=== PATIENT | male | born 1940 | race Caucasian/White ===

== ENCOUNTER 2018-02-20 11:34 | Day surgery (SDC) | payer MEDICARE, OTHER ==
[~2018-02-20] VITALS: Ht 177.8 cm; Wt 101.7 kg
[~2018-02-20 11:34] MED LIST: AMLO10 PO; BENA20 PO; CHOL10002 PO; Carvedilol12.5 MG PO; ELIQUIS5 MG PO; EZET10 PO; Ferosul325 MG PO; GLIM2 PO; Janumet 50-5001 EACH PO; KLOR-CON SPRIN10 MEQ PO; LIVALO2 MG PO; Prilosec Otc20 MG PO; TORSE20 PO; VITAMIN B122500 MC1 PO
== END 2018-02-20 13:30 | disposition home or self-care (01) ==
LOC: ORSCSDS 11:34
PROVIDERS: Internal Medicine Gastroenterology
PROC: 0DB58ZX Excision of Esophagus, Via Natural or Artificial Opening Endoscopic, Diagnostic (ICD-10-PCS; principal; 2018-02-20 13:00)
PROC: 0DB68ZX Excision of Stomach, Via Natural or Artificial Opening Endoscopic, Diagnostic (ICD-10-PCS; principal; 2018-02-20 13:00)
DX: K22.70 Barrett's esophagus without dysplasia (principal); K31.7 Polyp of stomach and duodenum; K21.9 Gastro-esophageal reflux disease without esophagitis; E11.9 Type 2 diabetes mellitus without complications; I10 Essential (primary) hypertension; I48.91 Unspecified atrial fibrillation; E78.00 Pure hypercholesterolemia, unspecified; Z87.891 Personal history of nicotine dependence; Z79.01 Long term (current) use of anticoagulants; Z79.82 Long term (current) use of aspirin; Z79.84 Long term (current) use of oral hypoglycemic drugs; Z79.899 Other long term (current) drug therapy
CPT/HCPCS: 82947; 88305; 88341; 88342; J2250

== ENCOUNTER → 2018-02-23 | Outpatient (CLI) | payer MEDICARE, OTHER ==
[2018-02-23 17:39] LABS: Appearance, Urine Clear (Clear); Bilirubin, Urine Neg (Neg); Blood, Urine 1+ (Neg); Color, Urine Yellow (P-Yellow); Glucose Qualitative, Urine Neg (Neg); Ketones, Urine Neg (Neg); Leukocyte Esterase, Urine Neg (Neg); Nitrite, Urine Neg (Neg); Protein, Urine Neg (Neg); Specific Gravity, Urine 1.015 (1.003-1.022); Urobilinogen, Urine NORM (Normal)
[2018-02-23 18:26] LABS: Bacteria Not Seen /hpf; Red Blood Cells, Urine 0-2 /hpf (0-2); Squamous Epithelial Cells Rare /hpf (Few); White Blood Cells, Urine 0-2 /hpf (0-5)
== END | disposition home or self-care (01) ==
LOC: LAB 16:00
PROVIDERS: Internal Medicine
DX: R31.29 Other microscopic hematuria (principal)
CPT/HCPCS: 81001

== ENCOUNTER 2019-09-17 11:48 | Day surgery (SDC) | payer MEDICARE, OTHER ==
[~2019-09-17] VITALS: Ht 177.8 cm; Wt 98.9 kg
[~2019-09-17 11:48] MED LIST changes: +Amlodipine Besy10 MG PO; +Benazepril HCl40 MG PO; +METF500C PO; +POTA10T PO; +Pravachol40 MG PO
== END 2019-09-17 14:26 | disposition home or self-care (01) ==
LOC: ORSCSDS 11:48
PROVIDERS: Internal Medicine Gastroenterology
PROC: 0DBL8ZX Excision of Transverse Colon, Via Natural or Artificial Opening Endoscopic, Diagnostic (ICD-10-PCS; principal; 2019-09-17 13:15)
DX: K62.5 Hemorrhage of anus and rectum (principal); D12.3 Benign neoplasm of transverse colon; K57.30 Diverticulosis of large intestine without perforation or abscess without bleeding; Z86.010 Personal history of colon polyps; I48.91 Unspecified atrial fibrillation; E11.9 Type 2 diabetes mellitus without complications; G47.33 Obstructive sleep apnea (adult) (pediatric); I10 Essential (primary) hypertension; K22.70 Barrett's esophagus without dysplasia; E78.5 Hyperlipidemia, unspecified; Z87.891 Personal history of nicotine dependence; E66.9 Obesity, unspecified; Z68.31 Body mass index [BMI] 31.0-31.9, adult; Z79.01 Long term (current) use of anticoagulants; Z79.82 Long term (current) use of aspirin; Z79.84 Long term (current) use of oral hypoglycemic drugs; Z79.899 Other long term (current) drug therapy
CPT/HCPCS: 82947; 88305; J2704; J7120

== ENCOUNTER 2021-08-02 12:51 | Inpatient (IN) | payer OTHER, MEDICARE ==
[~2021-08-02] VITALS: Ht 177.8 cm; Wt 92.9 kg
[~2021-08-02 12:51] MED LIST changes: +Amaryl1 MG PO; -Amlodipine Besy10 MG PO; -Benazepril HCl40 MG PO; -Carvedilol12.5 MG PO; -Pravachol40 MG PO; -Prilosec Otc20 MG PO; -TORSE20 PO
[2021-08-02 13:41] LABS: BASOPHILS ABSOLUTE AUTO 0.04 K/mm3 (0.00-0.23); BASOPHILS PERCENT AUTO 1 % (0-2); EOSINOPHILS PERCENT AUTO 2 % (0-6); Hematocrit 28.5 % (37.0-53.0); Hemoglobin 8.5 g/dL (13.5-17.5); IMMATURE GRAN ABSOLUTE AUTO 0.05 K/mm3 (0.00-0.10); IMMATURE GRAN PERCENT AUTO 1 % (0-1); LYMPHOCYTES ABSOLUTE AUTO 0.47 K/mm3 (0.84-5.20); LYMPHOCYTES PERCENT AUTO 7 % (21-46); MONOCYTES ABSOLUTE AUTO 0.55 K/mm3 (0.16-1.47); MONOCYTES PERCENT AUTO 8 % (4-13); Mean Corpuscular HGB 29.4 pg (26.0-34.0); Mean Corpuscular HGB Conc 29.8 g/dL (31.5-36.5); Mean Corpuscular Volume 99 fL (80-100); Mean Platelet Volume 8.9 fL (9.1-12.4); NEUTROPHILS ABSOLUTE AUTO 5.42 K/mm3 (1.96-9.15); NEUTROPHILS PERCENT AUTO 82 % (41-73); Platelet Count 281 K/mm3 (150-400); RDW Coefficient Variation 15.9 % (11.7-14.2); RDW Standard Deviation 58.1 fL (35.1-46.3); Red Blood Cell Count 2.89 M/mm3 (4.30-5.90); White Blood Cell Count 6.63 K/mm3 (4.00-11.30)
[2021-08-02 14:17] LABS: Alanine Aminotransfer (ALT/SGP 22 U/L (12-78); Albumin, Blood 2.9 g/dL (3.4-5.0); Albumin/Globulin Ratio 0.8 (0.8-1.8); Alk Phos 76 U/L (50-136); Anion Gap 2 mmol/L (6-16); Aspartate Aminotrans (AST/SGOT 21 U/L (12-37); Bilirubin, Total 0.3 mg/dL (0.1-1.0); Blood Urea Nitrogen 20 mg/dL (8-24); Bun/Creatinine Ratio 15.5 (12.0-20.0); CO2, Blood 39 mmol/L (21-32); Calcium, Blood 8.5 mg/dL (8.5-10.1); Chloride, Blood 94 mmol/L (98-108); Creatinine, Blood 1.29 mg/dL (0.60-1.20); Globulin, Blood 3.5 g/dL (2.2-4.0); Glomerular Filtration Rate 54 (60-); Glucose, Blood 145 mg/dL (70-99); Potassium, Blood 4.2 mmol/L (3.5-5.5); Sodium, Blood 135 mmol/L (136-145); Total Protein, Blood 6.4 g/dL (6.4-8.2); Troponin I <0.015 ng/mL (0.000-0.040)
[2021-08-02 14:38] LABS: Base Excess Venous 12.3 mmol/L; PCO2 Venous 84.7 mmHg (38-42); PO2 Venous 53.1 mmHg (38-42); pH Blood Venous 7.27 (7.34-7.37)
[2021-08-02 14:43] LABS: SARS-Cov-2 (COVID-19) PCR, MMC NEGATIVE (NEGATIVE)
[2021-08-02] MEDS ORDERED: Prilosec Otc20 MG PO (15:10)
[2021-08-02] MEDS ORDERED: CARAFATE1 GM/10 M1 PO (15:13)
[2021-08-02] MEDS ORDERED: CLOBETASOL EMOL15 G2 TOP (15:17)
[2021-08-02] MEDS ORDERED: Amlodipine Bes2.5 MG PO (15:18)
[2021-08-02] MEDS ORDERED: ELIQUIS5 MG PO (15:20)
[2021-08-02] MEDS ORDERED: Carvedilol12.5 MG PO (15:20)
[2021-08-02] MEDS ORDERED: PRAVASTATIN SOD40 MG PO (15:21)
[2021-08-02] MEDS ORDERED: BENA20 PO (15:22)
[2021-08-02] MEDS ORDERED: TORSE20 PO (15:22)
[2021-08-02] MEDS ORDERED: K-Dur10 MEQ PO (15:23)
[2021-08-02] MEDS ORDERED: B-121000 MC3 PO (15:25)
[2021-08-02] MEDS ORDERED: VITAMIN D325 MC3 PO (15:25)
[2021-08-02] MEDS ORDERED: Ferosul325 MG PO (15:26)
[2021-08-02] MEDS ORDERED: Ventolin/Prove6.7 GM INH (15:26)
[2021-08-02 17:00] LABS: Percent Saturation 6.7 % (20.0-50.0)
--- NOTE | 2021-08-03 05:33 | NUR ---
SHIFT SUMMARY PATIENT IS STABLE. NO ACUTE CHANGES. PT QUIET MOST OF THE NIGHT.
[2021-08-03 06:26] LABS: BASOPHILS ABSOLUTE AUTO 0.03 K/mm3 (0.00-0.23); BASOPHILS PERCENT AUTO 1 % (0-2); EOSINOPHILS ABSOLUTE AUTO 0.27 K/mm3 (0.00-0.68); EOSINOPHILS PERCENT AUTO 5 % (0-6); Hemoglobin 8.5 g/dL (13.5-17.5); IMMATURE GRAN ABSOLUTE AUTO 0.05 K/mm3 (0.00-0.10); IMMATURE GRAN PERCENT AUTO 1 % (0-1); LYMPHOCYTES ABSOLUTE AUTO 0.69 K/mm3 (0.84-5.20); LYMPHOCYTES PERCENT AUTO 13 % (21-46); MONOCYTES ABSOLUTE AUTO 0.56 K/mm3 (0.16-1.47); MONOCYTES PERCENT AUTO 10 % (4-13); Mean Corpuscular HGB 29.4 pg (26.0-34.0); Mean Corpuscular HGB Conc 30.4 g/dL (31.5-36.5); Mean Corpuscular Volume 97 fL (80-100); Mean Platelet Volume 9.1 fL (9.1-12.4); NEUTROPHILS ABSOLUTE AUTO 3.84 K/mm3 (1.96-9.15); NEUTROPHILS PERCENT AUTO 71 % (41-73); Platelet Count 271 K/mm3 (150-400); RDW Coefficient Variation 15.8 % (11.7-14.2); RDW Standard Deviation 57.2 fL (35.1-46.3); Red Blood Cell Count 2.89 M/mm3 (4.30-5.90); White Blood Cell Count 5.44 K/mm3 (4.00-11.30)
[2021-08-03 06:45] LABS: Alanine Aminotransfer (ALT/SGP 19 U/L (12-78); Albumin, Blood 2.8 g/dL (3.4-5.0); Albumin/Globulin Ratio 0.9 (0.8-1.8); Alk Phos 69 U/L (50-136); Anion Gap 7 mmol/L (6-16); Aspartate Aminotrans (AST/SGOT 12 U/L (12-37); Bilirubin, Total 0.3 mg/dL (0.1-1.0); Blood Urea Nitrogen 16 mg/dL (8-24); Bun/Creatinine Ratio 15.2 (12.0-20.0); CO2, Blood 37 mmol/L (21-32); Calcium, Blood 8.2 mg/dL (8.5-10.1); Chloride, Blood 94 mmol/L (98-108); Creatinine, Blood 1.05 mg/dL (0.60-1.20); Glomerular Filtration Rate >60 (60-); Glucose, Blood 82 mg/dL (70-99); Potassium, Blood 3.6 mmol/L (3.5-5.5); Sodium, Blood 138 mmol/L (136-145); Total Protein, Blood 5.8 g/dL (6.4-8.2)
--- NOTE | 2021-08-03 10:25 | NUR ---
Echocardiogram completed.
[2021-08-03 22:00] LABS: Hematocrit 27.7 % (37.0-53.0); Hemoglobin 8.5 g/dL (13.5-17.5)
--- NOTE | 2021-08-04 06:36 | NUR ---
SHIFT SUMMARY PATIENT DENIES PAIN, NAUSEA, AND SHORTNESS OF RBEATH. PATIENT ON 10-12L/OXYMIZER OR CPAP WHILE ASLEEP TO MAINTAIN OXYGEN SATURATION ABOVE 90%. PATIENT UP ONE ASSIST TO USE URINAL AT BEDSIDE. PATIENT REPORTED BLOODY STOOLS ON DAYSHIFT, WITH ONE LARGE LUCIUS RED STOOL IN TOILET AT SHIFTCHANGE. CALL TO HOSPITALIST, NEW ORDERS FOR TELE MONITOR AND STAT H&H. HEMOGLOBIN 8.5. PATIENT PLEASANT AND COOPERATIVE WITH CARE.
[2021-08-04 16:36] LABS: Hematocrit 26.6 % (37.0-53.0); Hemoglobin 8.3 g/dL (13.5-17.5)
--- NOTE | 2021-08-04 19:49 | NUR ---
SHIFT SUMMARY: NO ACUTE EVENTS TO REPORT THIS SHIFT. PT A&O; OCC CONFUSION; CALM AND COOPERATIVE WITH CARE. CARDIOLOGY CONSULT (DR TANNER) THIS SHIFT. REPORT GIVEN TO ONCOMING RN.
--- NOTE | 2021-08-05 04:00 | NUR ---
SHIFT SUMMARY PATIENT QUIET IN HIS ROOM MOST OF THE NIGHT. REFUSED AMBIEN STATING THST HE HAD BAD DREAMS. NO ACUTE CHANGES TO CONDITION
[2021-08-05 06:12] LABS: BASOPHILS ABSOLUTE AUTO 0.03 K/mm3 (0.00-0.23); BASOPHILS PERCENT AUTO 1 % (0-2); EOSINOPHILS ABSOLUTE AUTO 0.15 K/mm3 (0.00-0.68); EOSINOPHILS PERCENT AUTO 3 % (0-6); Hematocrit 27.2 % (37.0-53.0); Hemoglobin 8.4 g/dL (13.5-17.5); IMMATURE GRAN ABSOLUTE AUTO 0.09 K/mm3 (0.00-0.10); IMMATURE GRAN PERCENT AUTO 2 % (0-1); LYMPHOCYTES ABSOLUTE AUTO 0.73 K/mm3 (0.84-5.20); LYMPHOCYTES PERCENT AUTO 13 % (21-46); MONOCYTES ABSOLUTE AUTO 0.52 K/mm3 (0.16-1.47); MONOCYTES PERCENT AUTO 9 % (4-13); Mean Corpuscular HGB 28.9 pg (26.0-34.0); Mean Corpuscular HGB Conc 30.9 g/dL (31.5-36.5); Mean Corpuscular Volume 94 fL (80-100); Mean Platelet Volume 8.8 fL (9.1-12.4); NEUTROPHILS PERCENT AUTO 74 % (41-73); NRBC ABSOLUTE 0.02 K/mm3 (0.00-0.02); NRBC Auto 0.3 /100 WBC (0.0-0.2); Platelet Count 294 K/mm3 (150-400); RDW Coefficient Variation 15.9 % (11.7-14.2); RDW Standard Deviation 54.6 fL (35.1-46.3); Red Blood Cell Count 2.91 M/mm3 (4.30-5.90); White Blood Cell Count 5.82 K/mm3 (4.00-11.30)
[2021-08-05 06:39] LABS: Anion Gap 4 mmol/L (6-16); Blood Urea Nitrogen 10 mg/dL (8-24); Bun/Creatinine Ratio 10.4 (12.0-20.0); CO2, Blood 40 mmol/L (21-32); Calcium, Blood 8.9 mg/dL (8.5-10.1); Chloride, Blood 94 mmol/L (98-108); Creatinine, Blood 0.96 mg/dL (0.60-1.20); Glomerular Filtration Rate >60 (60-); Glucose, Blood 104 mg/dL (70-99); Potassium, Blood 3.1 mmol/L (3.5-5.5); Sodium, Blood 138 mmol/L (136-145)
--- NOTE | 2021-08-05 18:34 | NUR ---
PT TRANSFERRED FROM [facility] FLOOR RM 333 TO RM 408. PT ON 8L O2. P/T CAME TO WORK WITH PT. AMBULATED WITH WALKER AND PORTABLE O2. [facility] REPORTS UNABLE TO COLLECT SPUTUM CULTURE OF YET DRY COUGH. PT STATES HE DOES NOT WANT AMBIEN AT NIGHT IT CAUSED SEVERE NIGHTMARES. PT TO BE UP IN CHAIR FOR ALL MEALS. DECREASED BREATH SOUNDS ON LEFT- POSS RHONCHI, RIGHT CLEAR. ACTIVE BT X 4. HEART RATE IRREG- WHICH IS NORMAL FOR HIM. DR. LIND HAS CONSULTED. HX AFIB, BUT NOT ON MED D/T HX OF GI BLEED. MED FL STATES LAST BM TODAY.
[2021-08-05 20:49] LABS: SARS-Cov-2 (COVID-19) PCR, MMC NEGATIVE (NEGATIVE)
--- NOTE | 2021-08-05 23:27 | NUR ---
SPOKE WITH RESPIRATORY THERAPY ABOUT PATIENTS ACETYLCYSTEINE INH. AND ASKED IF THEY WERE PLANNING ON COMING TO ADMINISTER IT TO THE PATIENT. THE RESPONSE WAS THEY WOULD ATTEMPT TO COME DURING NOC SHIFT. RN ALSO QUESTIONED ABOUT CPAP AND HOW MANY LITERS OF O2 TO SET IT UP WITH. THE RECOMMENDATION WAS TO START AT 2LPM. CPAP WILL BE PLACED ON PATIENT. CALL LIGHT WITHIN REACH.
--- NOTE | 2021-08-05 23:41 | NUR ---
PATIENT SET UP WITH CPAP. CALL LIGHT WITH IN REACH.
--- NOTE | 2021-08-06 02:23 | NUR ---
RT CAME TO CHECK ON PATIENT, THEY DISCUSSED WITH DR. SWENSON REGARDING THE ORDER FOR MUCOMYST, DR. SWENSON HAS DC'D IT. RT TO CHECK ON CPAP SETTING AND PT'S O2 SATS ON 8LPM. PATIENT'S O2 SATS WERE 98% SO RT LOWER O2 TO 4LPM. PER RT PATIENT SHOULD REMAIN ON CONTINUOUS SAT MONITORING ESPECIALLY WHEN HE IS ON HIS CPAP. PT C/O DRY NOSTRILS AND A HUMIDIFIER WAS PLACED TO HELP WITH THAT. CALL LIGHT WITHIN REACH.
--- NOTE | 2021-08-06 03:46 | NUR ---
PATIENTS 02 SATS REMAIN AT 96% ON 4LPM. CONTINUOUS 02 MONITOR ON. CALL LIGHT WITHIN REACH.
[2021-08-06 05:41] LABS: BASOPHILS ABSOLUTE AUTO 0.04 K/mm3 (0.00-0.23); BASOPHILS PERCENT AUTO 1 % (0-2); EOSINOPHILS ABSOLUTE AUTO 0.15 K/mm3 (0.00-0.68); EOSINOPHILS PERCENT AUTO 2 % (0-6); Hematocrit 27.1 % (37.0-53.0); Hemoglobin 8.5 g/dL (13.5-17.5); IMMATURE GRAN ABSOLUTE AUTO 0.12 K/mm3 (0.00-0.10); IMMATURE GRAN PERCENT AUTO 2 % (0-1); LYMPHOCYTES ABSOLUTE AUTO 0.91 K/mm3 (0.84-5.20); LYMPHOCYTES PERCENT AUTO 12 % (21-46); MONOCYTES ABSOLUTE AUTO 0.55 K/mm3 (0.16-1.47); MONOCYTES PERCENT AUTO 8 % (4-13); Mean Corpuscular HGB 29.2 pg (26.0-34.0); Mean Corpuscular HGB Conc 31.4 g/dL (31.5-36.5); Mean Corpuscular Volume 93 fL (80-100); Mean Platelet Volume 8.9 fL (9.1-12.4); NEUTROPHILS ABSOLUTE AUTO 5.61 K/mm3 (1.96-9.15); NEUTROPHILS PERCENT AUTO 76 % (41-73); Platelet Count 346 K/mm3 (150-400); RDW Coefficient Variation 15.9 % (11.7-14.2); RDW Standard Deviation 54.4 fL (35.1-46.3); Red Blood Cell Count 2.91 M/mm3 (4.30-5.90); White Blood Cell Count 7.38 K/mm3 (4.00-11.30)
--- NOTE | 2021-08-06 05:51 | NUR ---
PATIENT UP TILL 2330. RN SET PATIENT UP WITH CPAP. PATIENT RESTED QUIETLY FOR APPROXIMATELY 2 HRS. PATIENT HAS BEEN UP SINCE. RT DOWN TO CHECK ON PATIENT. PATIENT'S O2 SATS HAVE REMAINED AT 96% ON 4LPM SO RT DECREASED O2 TO 3LPM. PATIENT TOLERATING IT WELL. PATIENT HAS BEEN UP IN BED READING. CALL LIGHT WITHIN REACH.
[2021-08-06 06:11] LABS: Anion Gap 4 mmol/L (6-16); Blood Urea Nitrogen 10 mg/dL (8-24); Bun/Creatinine Ratio 10.2 (12.0-20.0); CO2, Blood 39 mmol/L (21-32); Calcium, Blood 8.6 mg/dL (8.5-10.1); Chloride, Blood 94 mmol/L (98-108); Creatinine, Blood 0.98 mg/dL (0.60-1.20); Glomerular Filtration Rate >60 (60-); Glucose, Blood 118 mg/dL (70-99); Potassium, Blood 3.1 mmol/L (3.5-5.5); Sodium, Blood 137 mmol/L (136-145)
--- NOTE | 2021-08-06 07:29 | NUR ---
REPORT TAKEN FROM MUNA ARROYO. PT RESTING, CALL LIGHT WITHIN REACH. WILL CONTINUE TO MONITOR.
--- NOTE | 2021-08-06 09:08 | NUR ---
PT SITTING AT BEDSIDE. ON CONTINOUS PULSE OXIMETER. PT ON 4L OF O2 VIA NC AND O2 SAT AT 95%. LUNG SOUNDS DIMINISHED THROUGHOUT. PT DENIES AND ANY COUGH AND STILL WAITING FOR SPUTUM SAMPLE TO BE SENT. PT STATES HE WANTS TO GO HOME TODAY. PT AWAKE, ALERT. PT MOVES INDEPENDENTLY IN ROOM FROM LYING DOWN TO SITTING AT BEDSIDE. PT TOLERATED BREAKFAST WITHOUT ANY C/O OF NAUSEA/VOMITING. CALL LIGHT WITHIN REACH. PT READING BOOK AT THIS TIME. URINAL WITHIN REACH FOR VOIDING. WILL CONTINUE TO MONITOR.
--- NOTE | 2021-08-06 10:45 | NUR ---
PT RESTING, CALL LIGHT WITHIN REACH. RT CALLED FOR EVAL PER DR. CAMPUZANO PRIOR TO DC. WILL CONTINUE TO MONITOR.
[2021-08-06] MEDS ORDERED: FLUTICASONE-SA1 EAC2 INH (11:20)
[2021-08-06] MEDS ORDERED: VISBIOME 112.51 EACH PO (11:21)
[2021-08-06] MEDS ORDERED: AZIT250 PO (11:22)
[2021-08-06] MEDS ORDERED: CEFP200 PO (11:22)
[2021-08-06] MEDS ORDERED: ALBU2.5V5 INH (11:23)
--- NOTE | 2021-08-06 11:43 | NUR ---
PT RESTING, EATING LUNCH. WAITING FOR RT TO SEE PT PRIOR TO DISCHARGE. WILL CONTINUE TO MONITOR.
--- NOTE | 2021-08-06 12:30 | NUR ---
PT UP AND AMBULATING USING WALKER WITH PHYSICAL THERAPY AT THIS TIME.
--- NOTE | 2021-08-06 13:10 | NUR ---
GEORGETTE GARRELTS PT IN ROOM TO DO O2 EVAL. GEORGETTE RECOMMENDED PT TO GO HOME WITH 3L OF O2 AT REST AND WITH ACTIVITY. GEORGETTE ALSO RECOMMENDS FRONT WHEEL WALKER AT HOME FOR PT. GAUTAM EVP HEAD OF [employer] AWARE. WAITING FOR O2 TANK BEFORE PT IS DISCHARGE. PT RESTING IN ROOM AT THIS TIME. CALL LIGHT WITHIN REACH.
--- NOTE | 2021-08-06 15:19 | NUR ---
LATE ENTRY: PT WAS DISCHARGED AT AROUND 1446 TODAY 08/06/21. PT WAS GIVEN DISCHARGE INSTRUCTIONS AND WAS SENT HOME WITH FLUTICASONE INH, PHARMACY APPROVED. DR. FOSTER WAS CALLED TO CONFIRM THAT PT CAN START ABX TOMORROW INSTEAD OF TODAY. PER PT FAMILY, ALL PHARMACY IS CLOSED TODAY. PT AMBULATED OUT WITH A CANE WITH SBA. PT WAS SENT HOME WITH ALL BELONGINGS. FAMILY MEMBER DROVE PT HOME.
== END 2021-08-06 14:42 | disposition home or self-care (01) | DRG 291 ==
LOC: ER 12:51 → MEDS 17:11 → ORSCIP 08-05 15:44
PROVIDERS: Anesthesiology; Emergency Medicine; Internal Medicine; ADMIT Hospitalist
DX: I11.0 Hypertensive heart disease with heart failure (principal); I50.31 Acute diastolic (congestive) heart failure; J18.9 Pneumonia, unspecified organism; J96.02 Acute respiratory failure with hypercapnia; J96.21 Acute and chronic respiratory failure with hypoxia; I48.20 Chronic atrial fibrillation, unspecified; N17.9 Acute kidney failure, unspecified; Z20.822 Contact with and (suspected) exposure to COVID-19; I08.1 Rheumatic disorders of both mitral and tricuspid valves; D50.9 Iron deficiency anemia, unspecified; I27.20 Pulmonary hypertension, unspecified; E78.5 Hyperlipidemia, unspecified; Z88.8 Allergy status to other drugs, medicaments and biological substances; Z79.84 Long term (current) use of oral hypoglycemic drugs; Z79.01 Long term (current) use of anticoagulants; Z79.899 Other long term (current) drug therapy; Z98.890 Other specified postprocedural states
CPT/HCPCS: 36415; 71045; 71046; 71260; 80048; 80053; 82728; 82803; 83540; 83550; 83880; 84145; 84443; 84484; 85014; 85018; 85025; 93005; 93010; 93306; 93970; 94640; 94660; 94762; 97116; 97161; 99285-25; A9270; J0456; J0696; J1940; J2916; J7050; Q9967; U0004

== ENCOUNTER 2021-08-08 15:10 | Emergency (ER) | payer OTHER ==
[~2021-08-08] VITALS: Ht 177.8 cm; Wt 94.3 kg
[~2021-08-08 15:10] MED LIST changes: +ALBU2.5V5 INH; +AZIT250 PO; +Amlodipine Bes2.5 MG PO; +B-121000 MC3 PO; +CARAFATE1 GM/10 M1 PO; +CEFP200 PO; +CLOBETASOL EMOL15 G2 TOP; +Carvedilol12.5 MG PO; +FLUTICASONE-SA1 EAC2 INH; +K-Dur10 MEQ PO; +PRAVASTATIN SOD40 MG PO; +Prilosec Otc20 MG PO; +TORSE20 PO; +VISBIOME 112.51 EACH PO; +VITAMIN D325 MC3 PO; +Ventolin/Prove6.7 GM INH
[2021-08-08 15:43] LABS: BASOPHILS ABSOLUTE AUTO 0.04 K/mm3 (0.00-0.23); BASOPHILS PERCENT AUTO 1 % (0-2); EOSINOPHILS ABSOLUTE AUTO 0.34 K/mm3 (0.00-0.68); EOSINOPHILS PERCENT AUTO 4 % (0-6); Hematocrit 26.5 % (37.0-53.0); Hemoglobin 8.1 g/dL (13.5-17.5); IMMATURE GRAN ABSOLUTE AUTO 0.11 K/mm3 (0.00-0.10); IMMATURE GRAN PERCENT AUTO 1 % (0-1); LYMPHOCYTES PERCENT AUTO 14 % (21-46); MONOCYTES ABSOLUTE AUTO 0.55 K/mm3 (0.16-1.47); MONOCYTES PERCENT AUTO 7 % (4-13); Mean Corpuscular HGB 29.1 pg (26.0-34.0); Mean Corpuscular HGB Conc 30.6 g/dL (31.5-36.5); Mean Corpuscular Volume 95 fL (80-100); Mean Platelet Volume 8.7 fL (9.1-12.4); NEUTROPHILS ABSOLUTE AUTO 5.79 K/mm3 (1.96-9.15); NEUTROPHILS PERCENT AUTO 73 % (41-73); Platelet Count 376 K/mm3 (150-400); RDW Coefficient Variation 16.9 % (11.7-14.2); RDW Standard Deviation 57.2 fL (35.1-46.3); Red Blood Cell Count 2.78 M/mm3 (4.30-5.90); White Blood Cell Count 7.93 K/mm3 (4.00-11.30)
[2021-08-08 16:15] LABS: Anion Gap 7 mmol/L (6-16); Blood Urea Nitrogen 17 mg/dL (8-24); Bun/Creatinine Ratio 8.4 (12.0-20.0); CO2, Blood 32 mmol/L (21-32); Calcium, Blood 8.3 mg/dL (8.5-10.1); Chloride, Blood 101 mmol/L (98-108); Creatinine, Blood 2.02 mg/dL (0.60-1.20); Glomerular Filtration Rate 32 (60-); Glucose, Blood 75 mg/dL (70-99); Magnesium, Blood 1.4 mg/dL (1.6-2.4); Potassium, Blood 3.1 mmol/L (3.5-5.5); Sodium, Blood 140 mmol/L (136-145); Troponin I <0.015 ng/mL (0.000-0.040)
[2021-08-08 16:23] LABS: Source, Urine Clean Catch
[2021-08-08 16:33] LABS: Appearance, Urine Clear (Clear); Bilirubin, Urine Neg (Neg); Blood, Urine Neg (Neg); Color, Urine Yellow (P-Yellow); Glucose Qualitative, Urine Neg (Neg); Ketones, Urine 1+ (Neg); Leukocyte Esterase, Urine Neg (Neg); Nitrite, Urine Neg (Neg); Protein, Urine 2+ (Neg); Urobilinogen, Urine 1+ (Normal)
[2021-08-08 16:56] LABS: Calcium Oxalate Crystals Rare /hpf; Red Blood Cells, Urine 0-2 /hpf (0-2); White Blood Cells, Urine 0-2 /hpf (0-5)
[2021-08-08 16:57] LABS: Bacteria Few /hpf; Renal Epithelial Rare /hpf (0-Rare); Squamous Epithelial Cells Few /hpf (Few)
== END 2021-08-08 22:37 | disposition home or self-care (01) ==
LOC: ER 15:10
PROVIDERS: Student in an Organized Health Care Education/Training Program
DX: N17.9 Acute kidney failure, unspecified (principal); E87.6 Hypokalemia; E83.42 Hypomagnesemia; Z88.8 Allergy status to other drugs, medicaments and biological substances; Z79.899 Other long term (current) drug therapy
CPT/HCPCS: 71045; 80048; 81001; 83735; 83880; 84484; 85025; 93005; 93010; 96374; 99285-25; A9270; J3475

== ENCOUNTER 2023-07-25 08:38 | Observation (INO) | payer MEDICARE, OTHER ==
[~2023-07-25] VITALS: Ht 177.8 cm; Wt 65.7 kg
[2023-07-25] MEDS ORDERED: CARV6.25 PO (09:10)
[2023-07-25 10:16] LABS: BASOPHILS ABSOLUTE AUTO 0.02 K/mm3 (0.00-0.23); BASOPHILS PERCENT AUTO 0 % (0-2); EOSINOPHILS PERCENT AUTO 0 % (0-6); Hematocrit 31.9 % (37.0-53.0); Hemoglobin 11.3 g/dL (13.5-17.5); IMMATURE GRAN ABSOLUTE AUTO 0.03 K/mm3 (0.00-0.10); IMMATURE GRAN PERCENT AUTO 0 % (0-1); LYMPHOCYTES ABSOLUTE AUTO 0.64 K/mm3 (0.84-5.20); LYMPHOCYTES PERCENT AUTO 9 % (21-46); MONOCYTES ABSOLUTE AUTO 0.67 K/mm3 (0.16-1.47); MONOCYTES PERCENT AUTO 9 % (4-13); Mean Corpuscular HGB 35.2 pg (26.0-34.0); Mean Corpuscular HGB Conc 35.4 g/dL (31.5-36.5); Mean Corpuscular Volume 99 fL (80-100); NEUTROPHILS ABSOLUTE AUTO 6.11 K/mm3 (1.96-9.15); NEUTROPHILS PERCENT AUTO 82 % (41-73); Platelet Count 168 K/mm3 (150-400); RDW Coefficient Variation 14.9 % (11.7-14.2); RDW Standard Deviation 54.1 fL (35.1-46.3); Red Blood Cell Count 3.21 M/mm3 (4.30-5.90); White Blood Cell Count 7.47 K/mm3 (4.00-11.30)
[2023-07-25 10:32] LABS: International Normalized Ratio 1.04; Prothrombin Time Results 10.9 Sec (9.7-11.5)
[2023-07-25 10:42] LABS: Albumin/Globulin Ratio 0.9 (0.8-1.8); Bilirubin, Total 0.8 mg/dL (0.1-1.0); Bun/Creatinine Ratio 19.5 (12.0-20.0); Calcium, Blood 8.7 mg/dL (8.5-10.1); Creatinine, Blood 1.13 mg/dL (0.60-1.20); Globulin, Blood 3.5 g/dL (2.2-4.0); Potassium, Blood 4.1 mmol/L (3.5-5.5); Total Protein, Blood 6.5 g/dL (6.4-8.2)
[2023-07-25 14:34] VITALS: BP 179/118
[2023-07-25] MEDS ORDERED: TORSE20 PO (15:30)
--- NOTE | 2023-07-25 16:46 | NUR ---
PT ADMITED TO THE UNIT ORIENTED TO THE ROOM. WENT FOR CT. AT BEDSIDE
[2023-07-25 16:50] VITALS: BP 151/92
[2023-07-25 20:24] VITALS: BP 142/71
[2023-07-26 04:11] VITALS: BP 119/84
[2023-07-26 05:01] LABS: BASOPHILS ABSOLUTE AUTO 0.02 K/mm3 (0.00-0.23); BASOPHILS PERCENT AUTO 0 % (0-2); EOSINOPHILS ABSOLUTE AUTO 0.04 K/mm3 (0.00-0.68); EOSINOPHILS PERCENT AUTO 1 % (0-6); Hematocrit 30.3 % (37.0-53.0); Hemoglobin 10.7 g/dL (13.5-17.5); IMMATURE GRAN ABSOLUTE AUTO 0.03 K/mm3 (0.00-0.10); IMMATURE GRAN PERCENT AUTO 1 % (0-1); LYMPHOCYTES ABSOLUTE AUTO 0.61 K/mm3 (0.84-5.20); LYMPHOCYTES PERCENT AUTO 10 % (21-46); MONOCYTES ABSOLUTE AUTO 0.64 K/mm3 (0.16-1.47); MONOCYTES PERCENT AUTO 10 % (4-13); Mean Corpuscular HGB 35.2 pg (26.0-34.0); Mean Corpuscular HGB Conc 35.3 g/dL (31.5-36.5); Mean Corpuscular Volume 100 fL (80-100); Mean Platelet Volume 8.7 fL (9.1-12.4); NEUTROPHILS ABSOLUTE AUTO 4.99 K/mm3 (1.96-9.15); NEUTROPHILS PERCENT AUTO 79 % (41-73); Platelet Count 153 K/mm3 (150-400); RDW Standard Deviation 54.6 fL (35.1-46.3); Red Blood Cell Count 3.04 M/mm3 (4.30-5.90); White Blood Cell Count 6.33 K/mm3 (4.00-11.30)
[2023-07-26 05:26] LABS: Albumin, Blood 2.9 g/dL (3.4-5.0); Albumin/Globulin Ratio 0.9 (0.8-1.8); Bilirubin, Total 0.9 mg/dL (0.1-1.0); Bun/Creatinine Ratio 19.7 (12.0-20.0); Calcium, Blood 8.8 mg/dL (8.5-10.1); Creatinine, Blood 1.17 mg/dL (0.60-1.20); Globulin, Blood 3.4 g/dL (2.2-4.0); Potassium, Blood 4.2 mmol/L (3.5-5.5); Total Protein, Blood 6.3 g/dL (6.4-8.2)
--- NOTE | 2023-07-26 07:47 | NUR ---
SHIFT SUMMARY PT IS A&O X3-4, SLIGHT DISORIENTION NOTED IN THE NIGHT, REORIENTED QUICKLY, PERLLA, EQUAL GRASPS, PT C/O HEADACHE & GENERAL PAIN, TYLENOL GIVEN, VSS, PT HAD 2 EPISODE'S OF INCONTINENCE. HX OF ALCOHOL USE WAS REPORTED BY PREVIOUS RN, PT IS STARTING TO SHOW MILD SIGNS OF CIWA, BEDSIDE REPORT GIVEN TO DAY RN, PT AWAKE & WATCHING TV, AWAITING CT SCAN, CALL LIGHT IN REACH.
[2023-07-26 07:59] VITALS: BP 150/78
--- NOTE | 2023-07-26 13:57 | NUR ---
DC- PT LEFT IN STABLE CONDITION WITH ALL BELONGINGS WITH . PT BROUGHT DOWNSTAIRS IN WC. ALL DC PAPERWORK SIGNED AND VERBALLY AGREED TO.
== END 2023-07-26 13:56 | disposition home or self-care (01) ==
LOC: ER 08:38 → MEDS 08:39
PROVIDERS: Emergency Medicine; ADMIT Internal Medicine
DX: S06.309A Unspecified focal traumatic brain injury with loss of consciousness of unspecified duration, initial encounter (principal); W19.XXXA Unspecified fall, initial encounter; I48.91 Unspecified atrial fibrillation; I10 Essential (primary) hypertension; D64.9 Anemia, unspecified; E11.9 Type 2 diabetes mellitus without complications; Z66 Do not resuscitate; Z87.891 Personal history of nicotine dependence; Z88.8 Allergy status to other drugs, medicaments and biological substances; Z79.899 Other long term (current) drug therapy
CPT/HCPCS: 36415; 70450; 72125; 80053; 85025; 85610; 85730; 93005; 93010; 96374; 96375; 99285-25; A9270; G0378; J1170; J2405